=== PATIENT | female | born 1950 | race Caucasian/White ===

== ENCOUNTER → 2017-12-26 | Outpatient (REF) | LOC: ZLAB.WCH 18:09 | DX: Z01.89 Encounter for other specified special examinations (principal) ==

== ENCOUNTER → 2020-02-09 | Outpatient (CLI) | payer MEDICARE, BC | LOC: MC.RAD 02-05 10:00 | DX: N63.23 Unspecified lump in the left breast, lower outer quadrant (principal) | CPT/HCPCS: G0279 ==

== ENCOUNTER 2020-02-25 06:55 | Day surgery (SDC) | payer MEDICARE, BC ==
[~2020-02-25] VITALS: Ht 165.1 cm; Wt 68.2 kg
[2020-02-25] MEDS ORDERED: MAXALT MLT5 MG PO (08:08)
[2020-02-25] MEDS ORDERED: REFRESH TEARS 330 ML OP (08:09)
[2020-02-25] MEDS ORDERED: SENNA-LAX8.6 MG PO (08:10)
[2020-02-25] MEDS ORDERED: METAMUCIL3.4 GM/DOS PO (08:11)
[2020-02-25] MEDS ORDERED: PROBIOTIC ACID1 EAC3 PO (08:12)
[2020-02-25] MEDS ORDERED: BENADRYL25 M2 PO (08:13)
[2020-02-25 08:20] VITALS: BP 143/83; PULSE 91; TEMP 98.2
--- NOTE | 2020-02-25 09:50 | NUR ---
Patient complaining of increased anxiety again. Made [employer] INSPECTOR aware, ordered Valium 5mg now. Given per orders. 1015- Radiology present to take patient down for more imaging and needle loc.
--- NOTE | 2020-02-25 11:20 | NUR ---
Patient returned from Radiology. Tearful, denies pain or discomfort. IV reconnected. Made OR aware. 1123- Sami transported patient to PACU for block.
[2020-02-25 13:45] VITALS: BP 137/76; PULSE 84; TEMP 97.6
--- NOTE | 2020-02-25 13:45 | NUR ---
Patient brought back to [facility] via cart from PACU. Alert oriented, denies pain or nausea. Placed on monitors, vital signs stable. Incisions to left axillary clean and intact. Patient states she would just like water at this time. Call shaffer within reach. Warm blanket provided. Will continue to monitor.
[2020-02-25 14:00] VITALS: BP 132/68; PULSE 80
--- NOTE | 2020-02-25 14:00 | NUR ---
Patient tolerating drink without difficulty. Requesting crackers at this time. Denies pain or nasuea. Will continue to monitor.
[2020-02-25 14:15] VITALS: BP 141/62; PULSE 79
[2020-02-25 14:30] VITALS: BP 131/70; PULSE 84
--- NOTE | 2020-02-25 14:50 | NUR ---
Patients called in order to pick patient up. Will notify this RN when he is in parking lot.
--- NOTE | 2020-02-25 14:54 | NUR ---
Patient tolerating food and drink without difficulty. Ambulated to bathroom, urinated without difficulty. Will continue to monitor.
--- NOTE | 2020-02-25 15:10 | NUR ---
Discharge instructions and education packet reviewed with patient. All questions answered. Awaiting arrival.
--- NOTE | 2020-02-25 15:21 | NUR ---
Monserrat ANN brought patient down to lobby. Met by at front entrance. Transfered into car without difficulty. Patient belongings in hand.
== END 2020-02-25 15:21 | disposition home or self-care (01) ==
LOC: SDCO 06:55
DX: C50.512 Malignant neoplasm of lower-outer quadrant of left female breast (principal); Z17.0 Estrogen receptor positive status [ER+]; F41.9 Anxiety disorder, unspecified; K59.09 Other constipation; R53.82 Chronic fatigue, unspecified; G43.909 Migraine, unspecified, not intractable, without status migrainosus; Z88.6 Allergy status to analgesic agent; Z88.5 Allergy status to narcotic agent; Z88.1 Allergy status to other antibiotic agents; Z83.3 Family history of diabetes mellitus; Z80.7 Family history of other malignant neoplasms of lymphoid, hematopoietic and related tissues; Z79.899 Other long term (current) drug therapy; Z82.49 Family history of ischemic heart disease and other diseases of the circulatory system
CPT/HCPCS: A9541; J0690; J1100; J1885; J2250; J2405; J2704; J3010; J7120

== ENCOUNTER 2020-12-29 15:00 | Outpatient (RCR) | payer MEDICARE, BC ==
[~2020-12-29 15:00] MED LIST: BENADRYL25 M2 PO; MAXALT MLT5 MG PO; METAMUCIL3.4 GM/DOS PO; PROBIOTIC ACID1 EAC3 PO; REFRESH TEARS 330 ML OP; SENNA-LAX8.6 MG PO
== END 2020-12-31 13:18 | disposition home or self-care (01) ==
LOC: MKS.ESL.PT 15:00
DX: C50.912 Malignant neoplasm of unspecified site of left female breast (principal); Z17.0 Estrogen receptor positive status [ER+]

== ENCOUNTER 2020-12-29 15:30 | Outpatient (RCR) | payer MEDICARE, BC | END 2020-12-31 13:14 | disposition home or self-care (01) | LOC: MKS.ESL.PT 15:30 | DX: S83.241A Other tear of medial meniscus, current injury, right knee, initial encounter (principal); M17.11 Unilateral primary osteoarthritis, right knee ==